=== PATIENT | male | born 1965 | race Hispanic/Latino ===

== ENCOUNTER 2023-04-11 07:24 | Day surgery (SDC) | payer OTHER, MEDICARE ==
[2023-04-06 13:01] LABS: BASOPHILS % (AUTO) 0.3 % (0.0-5.0); EOSINOPHILS % (AUTO) 3.4 % (0.0-8.0); HEMATOCRIT 28.8 % (42-54); LYMPHOCYTES % (AUTO) 16.2 % (21.0-51.0); MEAN CORPUSCULAR HEMOGLOBIN 30.9 pg (27.0-33.0); MEAN CORPUSCULAR HGB CONC 31.3 g/dL (32.0-36.0); MONOCYTES % (AUTO) 11.4 % (3.0-13.0); NEUTROPHILS % (AUTO) 68.4 % (40.0-77.0); PLATELET COUNT (AUTO) 226 K/uL (130-400); RED BLOOD CELL COUNT(AUTO) 2.91 MIL/uL (4.50-6.20); WHITE BLOOD COUNT (AUTO) 6.4 K/uL (4.8-10.8)
[2023-04-06 13:08] LABS: CREATININE 6.2 mg/dL (0.5-1.5); POTASSIUM 4.2 mmol/L (3.5-5.1)
[2023-04-06 13:18] LABS: INR 0.97 (0.85-1.15); PROTHROMBIN TIME 11.3 SEC (9.6-11.6)
[2023-04-06 13:19] LABS: PARTIAL THROMBOPLASTIN TIME 27.1 SEC (26.3-35.5)
[2023-04-06 13:21] LABS: B-TYPE NATRIURETIC PEPTIDE 1730 pg/mL (0-100)
[2023-04-06 13:28] LABS: APPEARANCE,URINE CLEAR (CLEAR); BILIRUBIN,URINE NEGATIVE (NEGATIVE); COLOR,URINE LIGHT-YELLOW (YELLOW); GLUCOSE, URINE (UA) 70 mg/dL (NEGATIVE); KETONES,URINE NEGATIVE (NEGATIVE); LEUKOCYTE ESTERASE ,URINE NEGATIVE Leu/uL (NEGATIVE); NITRATE,URINE NEGATIVE (NEGATIVE); OCCULT BLOOD,URINE NEGATIVE (NEGATIVE); PH,URINE 8.5 (5.0-8.0); PROTEIN,URINE 600 mg/dL (NEGATIVE); UROBILINOGEN,URINE 0.2 mg/dL (0.2-1.0)
[2023-04-06 13:33] LABS: MUCUS,URINE RARE LPF (None Seen); RBC,URINE 0-1 /HPF (0-1)
[2023-04-06 14:20] VITALS: BP 140/72; PULSE 77; RESP 18
[~2023-04-11] VITALS: Ht 182.9 cm; Wt 107.4 kg
[2023-04-11] VITALS (11 sets, daily range): BP systolic 146–178; BP diastolic 74–89; PULSE 69–81; RESP 14–20
[~2023-04-11 07:24] MED LIST: ACET-2079 PO; AMLO-258 PO; ASPI-1005 PO; CARV3.12 PO; CLOP75TA32 PO; FURO40TA5 PO; HYDR100T27 PO; LOSA25TA41 PO; MUPI22O TP; ROSU20TA73 PO; SEVE800T7 PO
[2023-04-11] MEDS ORDERED: 0.9%NACL 1000ML 1,000 ML IV ONE (07:43)
[2023-04-11] MEDS ORDERED: SODIUM BICARB 50MEQ 50ML VIAL 50 ML ONE (08:30)
[2023-04-11] MEDS ORDERED: LIDOCAINE HCL 400MG/20ML VIAL ONE (08:30)
[2023-04-11] MEDS ORDERED: BIVALIRUDIN 250 MG/VIAL IV ONE (08:30)
[2023-04-11] MEDS ORDERED: IOHEXOL 350 MG/ML 100ML INFUS..BTL IV ONE (08:31)
[2023-04-11] MEDS ORDERED: FENTANYL CITRATE PF 50 MCG/1 ML 2ML VIAL ONE (08:31)
[2023-04-11] MEDS ORDERED: IOHEXOL-350 50ML VIAL IV ONE ×2 (08:31→09:39)
[2023-04-11] MEDS ORDERED: MIDAZOLAM HCL 1 MG/ML 2ML VIAL ONE (08:31)
[2023-04-11] MEDS ORDERED: NITROGLYCERIN 50MG VIAL ONE (08:31)
== END 2023-04-11 16:10 | disposition home or self-care (01) ==
LOC: DAH 07:24
PROVIDERS: ATTEND Internal Medicine Cardiovascular Disease
DX: R06.02 Shortness of breath (principal); I27.24 Chronic thromboembolic pulmonary hypertension; R06.1 Stridor; I44.39 Other atrioventricular block; D68.9 Coagulation defect, unspecified; E11.22 Type 2 diabetes mellitus with diabetic chronic kidney disease; I13.2 Hypertensive heart and chronic kidney disease with heart failure and with stage 5 chronic kidney disease, or end stage renal disease; N18.6 End stage renal disease; I50.9 Heart failure, unspecified; I25.2 Old myocardial infarction; E78.5 Hyperlipidemia, unspecified; Z79.899 Other long term (current) drug therapy; Z79.01 Long term (current) use of anticoagulants; Z86.718 Personal history of other venous thrombosis and embolism; Z99.2 Dependence on renal dialysis; Z79.82 Long term (current) use of aspirin
CPT/HCPCS: 80048; 83880; 85025; 85610; 85730; 81001; 36415; 71045; 93005; 93460; C1894 ×3; C1760 ×2; C1769; Q9965 ×2; J3010; J3490 ×3; J7030; J2250; J1644; Q9967 ×3; A4215; A4222; A4221; A4663; A4216; A4606; A4223 ×3; 99156; 99157; J0583